=== PATIENT | female | born 1970 | race Two or more races ===

== ENCOUNTER 2021-08-11 21:58 | Emergency (ER) | payer OTHER ==
[~2021-08-11] VITALS: Ht 160 cm; Wt 106.1 kg
[2021-08-11] MEDS ORDERED: diphenhdrAMINE HCL 50 MG/1 ML VL IM ONE (22:15)
[2021-08-11] MEDS ORDERED: methylPREDNISolone SOD SUCC 125 MG/2 ML VL IM ONE (22:15)
[2021-08-12 01:19] VITALS: BP 156/79
== END 2021-08-12 01:48 | disposition home or self-care (01) ==
LOC: ER 22:00
DX: T80.62XA Other serum reaction due to vaccination, initial encounter (principal); R06.02 Shortness of breath; R13.10 Dysphagia, unspecified; R07.0 Pain in throat; E66.8 Other obesity; E11.9 Type 2 diabetes mellitus without complications; I10 Essential (primary) hypertension; Z68.41 Body mass index [BMI] 40.0-44.9, adult
CPT/HCPCS: 96372; 99284; J1200; J2930